=== PATIENT | male | born 1955 | race Caucasian/White ===

== ENCOUNTER 2020-12-18 12:45 | Emergency (ER) | payer MEDICARE, OTHER, SELFPAY ==
[2020-12-18 12:58] VITALS: BP 131/82; PULSE 65; RESP 16; TEMP 37.1; O2SAT 98
--- NOTE | 2020-12-18 13:36 | ED.SKABFB ---
HPI - Skin/Abscess/Foreign Bdy General Chief complaint: Skin/Abscess/Foreign Body Stated complaint: shingles Time Seen by Provider: 12/18/20 13:35 Source: patient Mode of arrival: ambulatory Limitations: no limitations History of Present Illness HPI narrative: Darren Torres is a65 yo male with a PMH of HTN, BPH, shingles, who comes to [facility] with shingles since last weekend and he has started himself already on valacyclovir at 1 g/tid. Patient has shingles shot Related Data Home Medications Medication Instructions Recorded Confirmed valacyclovir 1,000 mg PO TID 12/18/20 12/18/20 Allergies Allergy/AdvReac Type Severity Reaction Status Date / Time No Known Allergies Allergy Verified 12/18/20 13:10 Review of Systems Review of Systems: CONSTITUTIONAL: Denies fever, chills, sweats. EYES: Denies visual changes, redness, discharge. ENT: Denies rhinorrhea, congestion, sore throat, otalgia. CARDIOVASCULAR: Denies chest pain, palpitations, edema. RESPIRATORY: Denies dyspnea, wheezing, cough GASTROINTESTINAL: Denies abdominal pain, nausea, vomiting, diarrhea. GENITOURINARY: Denies dysuria, hematuria, abnormal discharge SKIN: Denies rash or itching. Shingles rash on right side NEUROLOGIC: Denies numbness, or focal weakness. PSYCHIATRIC: Denies anxiety or depression. [facility] Past Medical History Medical History Allergies Bladder cancer Coronary artery disease Gout HTN (hypertension) Hypercholesterolemia Malignant neoplasm of upper lobe of left lung Prostate cancer Surgical History Surgical History H/O hernia repair 05/17/19 History of biopsy of bladder History of rotator cuff surgery History of thoracotomy left History of vasectomy Hx of cystoscopy Family History Family History Sibling Family history of cardiovascular disease Family history of lung cancer Family history of malignant neoplasm of breast Family history of dementia Family history of malignant neoplasm of kidney Father Family history of dementia Mother CHF (congestive heart failure) CAD (coronary artery disease) Other Hypertension Social History Social History Smoking status: Former smoker Smoking end date: 05/03/89 Alcohol intake: current Alcohol use details: 2-3 times a week Comments At time of signature, I agree with nursing past medical, surgical, social and family history. There is no relevant family history pertinent to the presenting complaint. Exam Narrative: GENERAL: This is a well-nourished, well-developed patient, in mild distress. HEAD: normocephalic, atraumatic. EYES: Sclera clear/white. Vision is grossly intact. EARS: External ears normal, Hearing grossly intact. NOSE: External nose normal without nasal discharge, nares without redness, no rhinorrhea. THROAT: Mucous membranes moist, NECK: Neck supple, non-tender CARDIOVASCULAR: Regular rate and rhythm without murmurs, gallops, or rubs. RESPIRATORY: Clear to auscultation. Breath sounds equal bilaterally. No wheezes, rales, or rhonchi. GASTROINTESTINAL: Abdomen soft, non-tender, SKIN: warm, intact with rash on right side of back thoracic and wraps around to R flank NEURO: awake, alert, and oriented to person, place and time. There were no obvious focal neurologic abnormalities. Steady gait EXTREMITIES: Normal range of motion. BACK: Nontender without deformity Course Course Emergency Course: 65-year-old male is here with a shingles rash; has already started valacyclovir 1 g 3 times daily Patient has adequate valacyclovir to treatment needs pain medication and discussed the pros and cons of using oral narcotics, his concern is constipation and we discussed using Colace. Given lidocaine topical Vital Signs Vital signs: Vital
== END 2020-12-18 14:13 | disposition home or self-care (01) ==
PROVIDERS: Emergency Provider Nurse Practitioner; PCP Internal Medicine
DX: B02.9 Zoster without complications (principal); Z87.891 Personal history of nicotine dependence; I25.10 Atherosclerotic heart disease of native coronary artery without angina pectoris; M10.9 Gout, unspecified; I10 Essential (primary) hypertension; E78.00 Pure hypercholesterolemia, unspecified; Z85.51 Personal history of malignant neoplasm of bladder; Z85.118 Personal history of other malignant neoplasm of bronchus and lung; Z85.46 Personal history of malignant neoplasm of prostate
CPT/HCPCS: 99213; G0463

== ENCOUNTER 2021-06-06 15:23 | Emergency (ER) | payer MEDICARE, OTHER, SELFPAY ==
[2021-06-06 15:28] VITALS: BP 156/58; PULSE 95; RESP 20; TEMP 36.5; O2SAT 99
[2021-06-06 17:42] VITALS: BP 148/88; PULSE 90; RESP 16; TEMP 36.6; O2SAT 98
[2021-06-06 17:50] VITALS: BP 134/87; PULSE 95; RESP 18; O2SAT 99
[2021-06-06 18:19] LABS: Add Urine Microscopic? YES; Appearance Urine Clear (Clear); Bacteria Urine Trace /hpf; Bilirubin Urine Negative (Negative); Blood Urine 3+ (Negative); Color Urine Amber (Yellow); Glucose Urine UA Negative (Negative); Ketones Urine Trace mg/dL (Negative); Leukocyte Esterase Ur Negative LEU/UL (Negative); Nitrate Urine Positive (Negative); Protein Urine 2+ mg/dL (Negative); RBC Urine >75 /hpf (0-2); Specific Grav Ur 1.009 (1.001-1.035); Urobilinogen Urine Negative mg/dL (<2.0); WBC Urine >75 /hpf
--- NOTE | 2021-06-06 18:38 | ED.MALEGU ---
HPI - Male Genitourinary General Chief complaint: Urogenital-Male Stated complaint: hematuria Time Seen by Provider: 06/06/21 18:04 Source: patient Mode of arrival: ambulatory Limitations: no limitations History of Present Illness HPI Narrative: Patient is a 66-year-old male complaining of hematuria and unable to urinate started today. States that she has a history of bladder cancer and recent surgery last month. Patient states that once he got to the emergency room he was able to urinate, has urinated twice, and is feeling better. Patient states that his hematuria also has improved. Patient could have attributed the hematuria to shoveling snow and accidentally bumping his bladder with a shovel handle, called his urologist and was told that a scab might of come off and that is why he is bleeding. Related Data Home Medications Medication Instructions Recorded Confirmed valacyclovir 1,000 mg PO TID 12/18/20 12/18/20 Allergies Allergy/AdvReac Type Severity Reaction Status Date / Time No Known Allergies Allergy Verified 12/18/20 13:10 Review of Systems Review of Systems: All systems reviewed & are unremarkable except as noted in HPI and below Constitutional: Constitutional: Denies body ache(s), Denies chills, Denies excessive sweating, Denies fatigue, Denies fever(s), Denies headache(s), Denies lethargy, Denies malaise, Denies weakness and Denies weight loss Eyes: Eyes: Denies blurry vision, Denies change in vision and Denies loss of vision ENT: Denies dizziness, Denies ear discharge, Denies headache(s), Denies lip swelling, Denies epistaxis, Denies nasal congestion, Denies neck pain, Denies throat swelling and Denies tongue swelling Cardiovascular: Cardiovascular: Denies chest pain, Denies chest pain at rest, Denies chest pain with activity, Denies diaphoresis, Denies rapid heart rate, Denies edema, Denies irregular heart rhythm, Denies lightheadedness, Denies palpitations, Denies dyspnea and Denies dyspnea on exertion Respiratory: Respiratory: Denies chest congestion, Denies cough, Denies hemoptysis, Denies dyspnea and Denies dyspnea on exertion Gastrointestinal: Gastrointestinal: Denies abdominal pain, Denies melena, Denies hematochezia, Denies diarrhea, Denies nausea, Denies vomiting and Denies hematemesis Musculoskeletal: Musculoskeletal: Denies abnormal gait, Denies deformity, Denies joint swelling, Denies limited range of motion, Denies neck pain and Denies numbness Neurologic: Denies Abnormal speech present, Denies abnormal gait, Denies confusion, Denies dizziness, Denies headache(s), Denies focal weakness, Denies loss of vision, Denies numbness, Denies Other visual disturbances, Denies Sensory deficit (Neuro) and Denies weakness Psychiatric: Psychiatric: Denies confusion, Denies depression, Denies auditory hallucinations, Denies homicidal ideation and Denies suicidal ideation Endocrine: Endocrine: Denies cold intolerance, Denies excessive sweating, Denies fatigue, Denies heat intolerance and Denies palpitations Hematologic/Lymphatic: Hematologic/Lymphatic: Denies easy bleeding and Denies easy bruising Allergic/Immunologic: Allergic/Immunologic: Denies lip swelling, Denies throat swelling and Denies tongue swelling PMFSH Past Medical History Medical History Allergies Bladder cancer Coronary artery disease Gout HTN (hypertension) Hypercholesterolemia Liver cyst Malignant neoplasm of upper lobe of left lung Prostate cancer Surgical History Surgical History H/O hernia repair 05/17/19 History of biopsy of bladder History of rotator cuff surgery History of thoracotomy left History of vasectomy Hx of cystoscopy Family History Family History Sibling Family history of cardiovascular disease Family history of lung cancer Family history of ma
[2021-06-06 18:53] VITALS: BP 127/80; PULSE 94; RESP 18; O2SAT 97
[2021-06-06] MEDS: CEPHALEXIN 500 MG CAPSULE PO (18:58)
== END 2021-06-06 19:28 | disposition home or self-care (01) ==
PROVIDERS: Emergency Provider Emergency Medicine; PCP Internal Medicine
DX: R31.9 Hematuria, unspecified (principal); R33.9 Retention of urine, unspecified; C67.9 Malignant neoplasm of bladder, unspecified; I25.10 Atherosclerotic heart disease of native coronary artery without angina pectoris; I10 Essential (primary) hypertension; E78.00 Pure hypercholesterolemia, unspecified; M10.9 Gout, unspecified; Z87.891 Personal history of nicotine dependence; Z85.118 Personal history of other malignant neoplasm of bronchus and lung; Z85.46 Personal history of malignant neoplasm of prostate
CPT/HCPCS: 81001; 87086; 99283; A9270

== ENCOUNTER → 2022-02-26 13:46 | Outpatient (CLI) | payer MEDICARE, SELFPAY ==
--- NOTE | ~2022-02-26 | XR_ITS ---
XR chest 2V DATE: 02/26/2022 14:04 INDICATION: Cough TECHNIQUE: PA and lateral views COMPARISON: 12/29/2018 PA and lateral views FINDINGS: There is opacification of left hemithorax with leftward shift of heart and mediastinum cons istent with history of left pneumonectomy. Compensatory right lung hyperinflation. Right lung is kt r. No pleural effusion is evident. No pneumothorax. Included skeletal structures are unremarkable. . IMPRESSION: Status post left pneumonectomy; no active pulmonary disease Reviewed, dictated and finalized at location A.
--- NOTE | ~2022-02-26 | XR_ITS ---
XR lumbar spine 2-3V DATE: 02/26/2022 14:04 INDICATION: Back pain TECHNIQUE: AP, lateral and coned lateral lumbosacral views COMPARISON: 04/07/2012 lumbar spine FINDINGS: There is slight dextroscoliosis of the lumbar spine. Moderate degenerative disc disease and spurring at L1-2. Mild degenerative spurring. L2-3. Minimal anterolisthesis at L3-4 slight spurring at L3-4 and L4-5. No fracture or bone destruction. The pedicles are intact. Sacroiliac joints are normal. IMPRESSION: Mild to moderate degenerative change Reviewed, dictated and finalized at location A.
== END ==
PROVIDERS: PCP Clinical Nurse Specialist; Visit Provider Clinical Nurse Specialist
DX: C34.12 Malignant neoplasm of upper lobe, left bronchus or lung (principal); R05.9 Cough, unspecified; M54.9 Dorsalgia, unspecified; M51.36 Other intervertebral disc degeneration, lumbar region
CPT/HCPCS: 71046; 72100

== ENCOUNTER 2022-03-28 09:50 | Outpatient (CLI) | payer MEDICARE, SELFPAY ==
--- NOTE | ~2022-03-28 | MR_ITS ---
EXAMINATION: MR brain/brain stem wo/w con DATE: 03/28/2022 10:31 INDICATION: Persistent headache. TECHNIQUE: Magnetic resonance imaging (MRI) of the brain and brainstem was performed without and with 13 mL MultiHance intravenous contrast. COMPARISON: Head CT 08/11/2018 FINDINGS: There are scattered areas of nonspecific increased T2-weighted signal intensity in the cere bral white matter. There is no intracranial hemorrhage, acute infarction, or abnormal intracranial ma ss lesion. The ventricles are normal in size. There is mucosal thickening in the paranasal sinuses. T here are likely changes of right ocular lens replacement surgery. The mastoid air cells are normal. IMPRESSION: 1. Mild nonspecific cerebral white matter disease, which likely represents chronic small vessel ische yamilex disease. Reviewed, dictated and finalized at location A. TRONIC PUBLICATIONS SPECIALIST IMPRESSION: 1. Mild nonspecific cerebral white matter disease, which likely represents senior technical editor marly small vessel ischemic disease.
== END 2022-03-28 09:51 | disposition home or self-care (01) ==
PROVIDERS: PCP Internal Medicine; Visit Provider Clinical Nurse Specialist
DX: R51.9 Headache, unspecified (principal); R93.0 Abnormal findings on diagnostic imaging of skull and head, not elsewhere classified
CPT/HCPCS: 70553; A9577

== ENCOUNTER 2022-07-06 09:22 | Emergency (ER) | payer MEDICARE, SELFPAY ==
--- NOTE | ~2022-07-06 | CT_ITS ---
EXAMINATION: CT brain wo con DATE: 07/06/2022 12:44 INDICATION: Head injury. Headache, nausea, dizziness for 3 days. Syncopal episode 3 days ago. TECHNIQUE: Computed tomography (CT) of the head was performed without intravenous contrast. The mA wa s adjusted according to patient size. Iterative reconstruction technique was employed. Exam dose: 60 5.33 mGy-cm total exam DLP. COMPARISON: 03/28/2022 MRI brain/brainstem 08/11/2018 CT brain FINDINGS: Bilateral carotid siphon internal carotid artery calcifications. Small chronic right basal ganglia lacunar infarct. There is nonspecific diminished attenuation of the cerebral white matter, likely due to chronic small vessel ischemic changes stable focal hypodense ar ea in the anterior left periventricular white matter since 08/11/2018, possibly a small old infarct. No intracranial mass lesion or hemorrhage or recent cerebrovascular accident is detected. No midline shift or mass effect. Normal ventricular size. No subdural or epidural hematoma is detected. There is prominent mucoperiosteal thickening of the left maxillary sinus and extensive patchy opacifi cation of the ethmoid air cells bilaterally. There is a small mucus retention cyst or polyp along the lateral wall of the right maxillary sinus. The mastoid air cells are normally developed and aerated. No fracture or bone destruction of the cranial vault. IMPRESSION: Cerebral atherosclerosis and chronic small vessel ischemic changes of the cerebral white matter No acute intracranial finding or significant intracranial change since 08/11/2018 Paranasal sinus disease, increased since 08/11/2018 Reviewed, dictated and finalized at Location A. Reviewed, dictated and finalized at location B. ECTIONAL COOK IMPRESSION: Cerebral atherosclerosis and chronic small vessel ischemic changes of the cerebral white matter No acute intracranial finding or significant intracranial change since 9 Paranasal sinus disease, increased since 08/11/2018
[2022-07-06 09:30] VITALS: BP 115/91; PULSE 86; RESP 16; TEMP 36.7; O2SAT 98
--- NOTE | 2022-07-06 12:33 | ECG_ITS ---
Measurements Intervals [place] Rate: 71 P: 56 SD: 156 QRS: -32 QRSD: 96 T: 64 QT: 378 QTc: 413 Interpretive Statements SINUS RHYTHM LEFT AXIS DEVIATION PATTERN CONSISTENT WITH PULMONARY DISEASE BORDERLINE ECG COMPARED TO ECG 08/11/2018 01:49:17 LEFT-AXIS DEVIATION NOW PRESENT Electronically Signed On 07-06-2022 13:16:57 INSURANCE CLAIM REPRESENTATIVE by Nils Delgado D.O.
[2022-07-06] MEDS: ONDANSETRON INJ 4 MG/2 ML VIAL IV PUSH (13:12)
[2022-07-06] MEDS: LACTATED RINGERS 1,000 ML 999 ML IV CONT (13:13)
[2022-07-06 13:20] LABS: Basophils Percent Auto 0.3 % (0.2-1.2); Eosinophils Absolute Auto 0.1 K/mm3 (0-0.3); Eosinophils Percent Auto 1.9 % (0-4.4); Hemoglobin 15.4 g/dL (14.0-18.0); Lymphocytes Absolute Auto 0.58 K/mm3 (0.9-3.2); Lymphocytes Percent Auto 18.1 % (18.3-44.2); Mean Corpuscular HGB Conc 34.2 g/dl (32-36); Mean Corpuscular Hemoglobin 30.9 pg (26-34); Mean Corpuscular Volume 90.4 fl (80-100); Mean Platelet Volume 9.3 fl (7.4-10.4); Monocytes Absolute Auto 0.4 K/mm3 (0.1-0.6); Monocytes Percent Auto 12.5 % (2.6-8.5); Neutrophils Absolute Auto 2.2 K/mm3 (1.3-6.7); Neutrophils Percent Auto 67.2 % (45.5-73.1); Platelet Count Result 157 k/mm3 (150-375); Red Blood Count 4.98 M/mm3 (4.6-6.20); Red Cell Distribution Width 13.4 % (11.5-14.5); White Blood Count 3.2 K/mm3 (4.5-10.0)
--- NOTE | 2022-07-06 13:24 | ED.HA ---
HPI - Headache General Chief Complaint: Headache Stated Complaint: syncope on wednesday Time Seen by Provider: 07/06/22 12:29 Source: patient, RN notes reviewed and old records reviewed Mode of arrival: ambulatory Limitations: no limitations History of Present Illness HPI Narrative: This is a 67 year old male who presents for evaluation of headache. Patient states that he started having cold symptoms on. He had cough and congestion. He states he remembers coughing and then he woke up in the bed. HE is unsure of how he got into bed. He has noticed bump on the back of his head. He reports diffuse headache since his episode of symptoms. He states his cold symptoms are resolving. He was sent for evaluation of possible concussion. He had nausea yesterday but he denies any vomiting. He reports his headache is mild /10. He denies chest pain, palpitations or shortness of breath. HE reports episodes of syncope in the past with episodes of nausea and vomiting. Related Data Home Medications Medication Instructions Recorded Confirmed aspirin 81 mg tablet,delayed 81 mg PO DAILY 03/13/22 04/09/22 release Allergies Allergy/AdvReac Type Severity Reaction Status Date / Time iohexol AdvReac Vomiting Verified 07/06/22 12:33 [From contrast - CT, X-RAY] Review of Systems Constitutional: Constitutional: Denies weakness ENT: Reports nasal congestion Cardiovascular: Cardiovascular: Denies syncope, Denies rapid heart rate, Denies irregular heart rhythm, Denies leg edema and Denies dyspnea Respiratory: Respiratory: Denies chest congestion, Reports cough, Denies hemoptysis, Denies excessive phlegm production and Denies dyspnea Gastrointestinal: Gastrointestinal: Denies abdominal pain, Denies hematochezia, Denies diarrhea, Reports nausea and Denies vomiting Genitourinary: Genitourinary: Denies hematuria, Denies dysuria, Denies penile discharge and Denies testicular pain Musculoskeletal: Musculoskeletal: Denies joint swelling, Denies loss of height and Denies muscle weakness Neurologic: Denies syncope, Reports headache(s), Denies focal weakness and Denies weakness PMFSH Past Medical History Medical History Allergies Basal cell carcinoma (BCC) Bladder cancer Coronary artery disease Gout HTN (hypertension) Hypercholesterolemia Liver cyst 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 Prostate cancer Surgical History Surgical History H/O hernia repair 05/17/19 History of biopsy of bladder History of lobectomy of lung History of rotator cuff surgery History of thoracotomy left History of vasectomy Hx of cystoscopy Family History Family History Sibling Family history of cardiovascular disease Family history of lung cancer Family history of malignant neoplasm of breast Family history of dementia Family history of malignant neoplasm of kidney Father Family history of dementia Mother CHF (congestive heart failure) CAD (coronary artery disease) Other Hypertension Social History Social History Smoking status: Former smoker Smoking end date: 05/03/89 Alcohol intake: current Alcohol use details: 2-3 times a week Lack of Transportation: No Lack of Food: Never True Current Housing: I Have Housing Concerned About Future Housing: No Difficulty Paying Gas/Electric Bills: No Difficulty Paying for Meds: No Currently Unemployed: No Education: Bachelor's Degree Difficulty w/ Childcare or Family Care: No Exam Narrative: GENERAL: Well-appearing, well-nourished, and in no acute distress. HEAD: Normocephalic, atraumatic EYES: PERRLA and EOMI, conjunctiva clear without discharge EARS: TM's clear bilaterally without erythema or dullness N
[2022-07-06 13:28] LABS: Alanine Aminotransferase 20 U/L (6-50); Albumin Level 4.1 g/dL (3.5-5.1); Alkaline Phosphatase 65 U/L (38-126); Anion Gap 11 mmol/L (8-16); Aspartate Amino Transferase 31 U/L (17-59); Bilirubin,Total 0.6 mg/dL (0.2-1.3); Blood Urea Nitrogen 14 mg/dL (9-20); Calcium 8.2 mg/dL (8.4-10.2); Carbon Dioxide 27 mmol/L (22-30); Chloride 97 mmol/L (98-107); Estimated CRCL calculation 73 ml/min; Estimated Glomerular Filt Rate > 60; Glucose 80 mg/dL (65-110); Potassium 3.9 mmol/L (3.4-5.0); Sodium 135 mmol/L (137-145)
[2022-07-06 13:40] LABS: Partial Thromboplastin Time 33.9 SECONDS (22.3-36.8); Prothrombin Time 12.7 Seconds (11.1-14.7)
[2022-07-06 13:56] LABS: SARS-CoV-2 RNA PCR Positive
--- NOTE | 2022-08-04 13:55 | PC.NURSE ---
LATE ENTRY This note is being entered to document information to the patient's record. The following information was omitted on [07/06/22], by [Sheyla Alamo]. LR fluids stopped at 1410.
== END 2022-07-06 14:55 | disposition home or self-care (01) ==
PROVIDERS: Emergency Provider General Practice; PCP Internal Medicine
DX: U07.1 COVID-19 (principal); S09.10XA Unspecified injury of muscle and tendon of head, initial encounter; I10 Essential (primary) hypertension; M10.9 Gout, unspecified; E78.00 Pure hypercholesterolemia, unspecified; Z90.2 Acquired absence of lung [part of]; Z85.51 Personal history of malignant neoplasm of bladder; Z85.828 Personal history of other malignant neoplasm of skin; Z85.46 Personal history of malignant neoplasm of prostate; Z85.118 Personal history of other malignant neoplasm of bronchus and lung; Z87.891 Personal history of nicotine dependence; R94.31 Abnormal electrocardiogram [ECG] [EKG]; I67.2 Cerebral atherosclerosis; J32.9 Chronic sinusitis, unspecified; R55 Syncope and collapse; W18.39XA Other fall on same level, initial encounter
CPT/HCPCS: 36415; 70450; 80053; 83735; 85025; 85610; 85730; 93005; 96365; 96375; 99284; J0131; J2405; J7120; U0003; U0005

== ENCOUNTER → 2023-03-03 14:11 | Outpatient (CLI) | payer MEDICARE, OTHER, SELFPAY ==
--- NOTE | ~2023-03-03 | XR_ITS ---
EXAM: XR foot RT min 3V DATE: 03/03/2023 14:23 HISTORY: fall 01-02-23 pain 1st toe . COMPARISON: None available. FINDINGS: Normal mineralization. No fracture or dislocation. No lytic or blastic lesion. Mild scatte red degenerative changes. No erosion or periosteal change. Soft tissues within normal limits. IMPRESSION: No acute osseous finding in the right foot. Reviewed, dictated and finalized at location K.
== END ==
PROVIDERS: PCP Internal Medicine; Visit Provider Clinical Nurse Specialist
DX: M79.674 Pain in right toe(s) (principal)
CPT/HCPCS: 73630

== ENCOUNTER 2025-04-24 10:34 | Outpatient (CLI) | payer MEDICARE, OTHER, SELFPAY ==
--- NOTE | ~2025-04-24 | XR_ITS ---
XR shoulder LT min 2V 04/24/2025 10:52 Indication: Left shoulder pain Procedure: 4 views left shoulder Comparison: No prior studies for comparison. Findings: There is polyarticular osteoarthritis. Osteopenia. No fracture or traumatic malalignment. No soft tissue abnormality. No foreign bodies. There is near complete opacification of the left hemithorax. Recommend correlation with chest x-ray. Impression: 1: Mild-moderate polyarticular osteoarthritis. 2: Near complete opacification left hemithorax which may relate to effusion, atelectasis, pneumonia and/or prior pneumonectomy. Correlation with clinical history and possible chest x-ray recommended. Reviewed, dictated and finalized at location O. OGY INSTRUCTOR Impression: 1: Mild-moderate polyarticular osteoarthritis. 2: Near complete opacification left hemithorax which may relate to effusion, at electasis, pneumonia and/or prior pneumonectomy. Correlation with clinical hist ory and possible chest x-ray recommended.
== END 2025-04-24 10:35 | disposition home or self-care (01) ==
PROVIDERS: PCP Clinical Nurse Specialist; Visit Provider Clinical Nurse Specialist
DX: J94.2 Hemothorax (principal); M25.512 Pain in left shoulder
CPT/HCPCS: 73030